=== PATIENT | female | born 1995 | race Caucasian/White ===

== ENCOUNTER 2021-07-30 22:29 | Emergency (ER) | payer OTHER, SELFPAY ==
[2021-07-30 22:29] VITALS: BP 126/78; PULSE 68; RESP 20; TEMP 36.9; O2SAT 100; BMI 38.6
--- NOTE | 2021-07-30 22:38 | ECG_ITS ---
APPROVED REPORT Exam: Resting ECG HR:66 bpm ECG Measurements Heart Rate 66 AXES OK 164 P 67 QRSd 84 QRS 87 QT 386 T 67 QTc 404 Conclusion Normal sinus rhythm Normal ECG Electronically signed by : Jag Plaza MD 08/01/2021 20:20:20
--- NOTE | 2021-07-30 22:38 | XR_ITS ---
PROCEDURE INFORMATION: Exam: XR Chest Exam date and time: 07/30/2021 10:38 PM Age: 25 years old Clinical indication: Chest pressure; Patient HX: Chest pain; Additional info: Cp TECHNIQUE: Imaging protocol: XR of the chest. Views: 2 views. COMPARISON: No relevant prior studies available. FINDINGS: Airway: Patent Lungs: Unremarkable. No consolidation. Pleural spaces: Unremarkable. No pleural effusion. No pneumothorax. Heart/Mediastinum: Unremarkable. No cardiomegaly. Bones/joints: No acute skeletal abnormality or aggressive osseous lesion. IMPRESSION: No acute findings.
[2021-07-30 22:46] LABS: Basophils # 0.1 K/mm3 (0-0.2); Basophils % 1.4 % (0.1-2.0); Eosinophils # 0.1 K/mm3 (0.0-0.4); Eosinophils % 1.2 % (0.1-12.0); Hematocrit 40.1 % (37.0-47.0); Hemoglobin 13.2 g/dL (12.2-16.2); Lymphocytes # 5.1 K/mm3 (0.7-4.5); Lymphocytes % 50.6 % (10-50); Mean Corpuscular HGB Conc 32.9 g/dL (31.8-35.4); Mean Corpuscular Hemoglobin 28.6 pg (27.0-31.2); Mean Platelet Volume 7.6 fl (7.4-10.4); Monocytes # 0.5 K/mm3 (0.1-1.0); Monocytes % 4.7 % (1.7-9.3); Neutrophils # 4.2 K/mm3 (1.8-7.8); Neutrophils % 42.1 % (37.0-80.0); Platelet Count 272 K/mm3 (142-424); Red Blood Count 4.61 M/mm3 (4.20-5.40); Red Cell Distribution Width 13.7 % (11.5-17.5)
[2021-07-30 22:48] LABS: MANUAL DIFFERENTIAL MANUAL DIFFERENTIAL (MANUAL DIFF)
[2021-07-30 22:54] LABS: HCG Qualitative, Serum Negative (Negative)
[2021-07-30 22:58] LABS: Anion Gap 9.2 mEq/L (5-15); Blood Urea Nitrogen 8 mg/dl (7-17); Calcium 10.3 mg/dl (8.4-10.2); Carbon Dioxide 31 mmol/L (22.0-30.0); Chloride 104 mmol/L (98-107); Creatinine Clearance Estimated 229 mL/min (50-200); Estimated Glomerular Filt Rate 121 ml/min (>60); GFR (African American) 146 ML/MIN (>60); Glucose 98 mg/dl (74-100); Potassium 4.2 mmoL/L (3.5-5.1); Sodium 140 mmol/L (136-145)
[2021-07-30 22:59] LABS: Lymphocytes % 52 % (10-50); Monocytes % 3 % (2-9); Neutrophils % 41 % (42-76); Platelet Estimate Normal; RBC Morphology Normal; Total Cells Counted 100
[2021-07-30 23:17] LABS: Troponin I < 0.01 ng/ml (0.00-0.034)
--- NOTE | 2021-07-31 00:18 | PC.NURSE ---
would like 2 hr troponin
--- NOTE | 2021-07-31 00:33 | [facility].EDGENADL ---
ED Disposition Clinical Impression: Non-cardiac chest pain Disposition: Home, Self-Care Condition on Discharge: Good Additional Instructions: Please continue supportive care at home including ibuprofen and Tylenol. If your condition worsens or any other concerns arise, please return to the emergency department. Otherwise, please follow-up with your primary care doctor. Referrals: Esha Noriega [Primary Care Provider] - - Critical Care Critical Care Time: No Attestation: On 07/30/21, the high probability of a clinically significant, sudden or life threatening deterioration of the following system(s) required my full and direct attention, intervention and personal management. The time I documented below is in addition to time spent performing reported procedures but includes the following listed in this critical care notation. Medical Decision Making - Medical Records Medical records reviewed: Yes: I reviewed the patient's medical records. - Deshawn Inquiry Pt receiving controlled substance: No Vital Signs: 07/30/21 22:29 Temperature 98.5 F Temperature Source Oral Pulse Rate [Right] 68 Respiratory Rate 20 Blood Pressure [Right Arm] 126/78 Blood Pressure Mean [Right Arm] 94 Blood Pressure Source [Right Arm] Automatic Cuff 02 Sat by Pulse Oximetry 100 Oxygen Delivery Method Room Air - Lab Data Lab results reviewed: Yes: I reviewed the patient's lab results. Lab Results 07/30/21 22:30: WBC 10.0, RBC 4.61, Hgb 13.2, Hct 40.1, MCV 87.0, MCH 28.6, MCHC 32.9, RDW 13.7, Plt Count 272, MPV 7.6, Neut % (Auto) 42.1, Lymph % (Auto) 50.6 H, [place] % (Auto) 4.7, Eos % (Auto) 1.2, Baso % (Auto) 1.4, Neut # (Auto) 4.2, Lymph # (Auto) 5.[address], [place] # (Auto) 0.5, Eos # (Auto) 0.1, Baso # (Auto) 0.1, Total Counted 100, Neutrophils % (Manual) 41 L, Band Neutrophils % 4.0, Lymphocytes % (Manual) 52 H, Monocytes % (Manual) 3, Platelet Estimate Normal, RBC Morphology Normal 07/30/21 22:30: Sodium 140, Potassium 4.2, Chloride 104, Carbon Dioxide 31 H, Anion Gap 9.2, BUN 8, Creatinine 0.60, Estimated Creat Clear 229, Estimated GFR 121, Est GFR ( Amer) 146, Glucose 98, Calcium 10.3 H, Troponin I < 0.01 07/30/21 22:30: Serum HCG, Qual Negative 07/31/21 00:21: Troponin I < 0.01 Result diagrams: 07/30/21 22:30 07/30/21 22:30 Orders (Tests/Meds): ED MEDICATIONS Discontinued Medications Generic Name Dose Route Start Last Admin Trade Name Lary PRN Reason Stop Dose Admin Ibuprofen 400 mg 07/30/21 22:40 07/30/21 23:00 Ibuprofen 400 Mg Tablet PO 07/30/21 22:41 400 mg ONCE ONE Administration Methocarbamol 500 mg 07/30/21 22:41 07/30/21 23:00 Methocarbamol 500mg Tablet PO 07/30/21 22:42 500 mg ONCE ONE Administration ORDERS Category Date Time Status Troponin I Q3H Lab 07/31/21 04:45 Ordered Medical Decision Narrative: Patient is a 25-year-old female presenting with a chief complaint of chest pain for 3 hours prior to presentation. Differential diagnosis includes, but is not limited to, ACS, pericarditis, myocarditis, pneumonia, musculoskeletal chest pain. On initial evaluation, patient is hemodynamically stable and nontoxic-appearing. Negative for tachycardia. Physical exam reveals clear lung sounds bilaterally, normal heart sounds. Patient's chest pain is reproducible with palpation of the sternum and lateral chest wall. Patient was evaluated CBC, CMP, troponin, chest x-ray. Laboratory findings are unremarkable, troponin is within normal limits without a delta. Chest x-ray shows no acute findings in the chest. On reassessment, patient reports improvement and nearly completely solution of symptoms. Patient's presentation is consistent with musculoskeletal chest pain. Patient was given return precautions, advised to follow-up with her primary care doctor and discharged in stable condition. General Adult HPI - General Chief complaint: Chest Pain Stated complaint: CP Time See
[2021-07-31 00:49] LABS: Troponin I < 0.01 ng/ml (0.00-0.034)
[2021-07-31 01:34] VITALS: BP 116/72; PULSE 71; RESP 16; TEMP 36.8; O2SAT 96
== END 2021-07-31 01:37 | disposition home or self-care (01) ==
PROVIDERS: Emergency Provider Emergency Medicine; PCP Family Medicine
DX: R07.89 Other chest pain (principal)
CPT/HCPCS: 71046; 80048; 84484; 84703; 85007; 85025; 93005; 99283